=== PATIENT | male | born 1940 | race Caucasian/White ===

== ENCOUNTER 2017-02-16 11:13 | Emergency (ER) | payer OTHER, MEDICARE ==
[~2017-02-16] VITALS: Ht 180.3 cm; Wt 88.5 kg
[2017-02-16] MEDS ORDERED: KETOROLAC 15 MG/ML VIAL. IV ONE (12:45)
[2017-02-16] MEDS ORDERED: HYDROmorphone 2 MG/ML VIAL IV ONE (12:45)
[2017-02-16] MEDS ORDERED: ONDANSETRON PF 4 MG/2 ML VIAL. IV ONE ×2 (12:45)
[2017-02-16] MEDS ORDERED: IV NORMAL SALINE 1000ML BAG 1,000 ML IV ONE (12:45)
[2017-02-16] MEDS ORDERED: TAMSULOSIN 0.4 MG CAP.ER.24H. PO ONE (12:45)
[2017-02-16 12:47] LABS: BASO % 0 % (0-3); EOS % 2 % (0-3); HEMATOCRIT 44.4 % (39.0-53.0); HEMOGLOBIN 15.4 g/dL (13.0-17.5); LYMPH # 2.5 x10^3/uL (1.0-4.8); LYMPH % 33 % (24-48); MEAN CORPUSCULAR HEMOGLOBIN 31 pg (25-35); MEAN CORPUSCULAR HGB CONC 35 g/dL (31-37); MEAN CORPUSCULAR VOLUME 91 fL (79-100); MONO % 9 % (0-9); NEUT % 56 % (31-73); PLATELET COUNT 304 x10^3/uL (140-400); RED BLOOD COUNT 4.89 x10^6/uL (4.30-5.70); RED CELL DISTRIBUTION WIDTH 12.3 % (11.5-14.5); WHITE BLOOD COUNT 7.4 x10^3/uL (4.0-11.0)
[2017-02-16 12:53] LABS: CALCIUM 8.5 mg/dL (8.5-10.1); CREATININE 0.9 mg/dL (0.7-1.3); GFR 82.3; POTASSIUM 4.3 mmol/L (3.5-5.1)
[2017-02-16 13:02] LABS: ALBUMIN 3.9 g/dL (3.4-5.0); TOTAL BILIRUBIN 0.5 mg/dL (0.2-1.0); TOTAL PROTEIN 7.8 g/dL (6.4-8.2)
--- NOTE | 2017-02-16 14:04 | RAD ---
CT study of the abdomen and pelvis without contrast Clinical indications: Right flank pain for 5 days. Technique: Noncontrast helical CT scanning of the abdomen and pelvis was performed. Without contrast, the sensitivity to detect organ pathology and GI tract pathology is decreased. PQRS Compliance Statement: One or more of the following individualized dose reduction techniques were utilized for this examination: 1. Automated exposure control 2. Adjustment of the mA and/or kV according to patient size 3. Use of iterative reconstruction technique Comparison: None available. Findings: Diffuse fatty infiltration of the liver is seen. The spleen is not enlarged. Pancreas is homogeneous in appearance without focal enlargement. There is a gallstone within the neck of the gallbladder measuring 7 mm. No gallbladder wall thickening is seen. No extrahepatic biliary ductal dilatation is seen. No adrenal mass is evident. No urinary tract stone or hydronephrosis or hydroureter is seen. No renal mass is evident on either side on this noncontrast study. No focal aneurysmal dilatation of the abdominal aorta is seen. No enlarged abdominal or pelvic lymphadenopathy is evident. Urinary bladder wall is smooth. No obstructive bowel pattern is evident. The appendix is not identified and may be surgically absent. No free air or free fluid or mesenteric edema is seen. No lung base consolidation is evident. No osteolytic process is evident. IMPRESSION: Cholelithiasis. Fatty infiltration of the liver. No acute abnormality of the abdomen or pelvis is seen.
[2017-02-16] MEDS ORDERED: ORPHENADRINE CITRATE 60 MG/2 ML VIAL. IM ONE (15:00)
[2017-02-16 15:19] LABS: BILIRUBIN,URINE NEGATIVE (NEG); GLUCOSE,URINE 250 mg/dL (NEG); NITRITE,URINE NEGATIVE (NEG); PROTEIN,URINE NEGATIVE (NEG-TRACE); UROBILINOGEN,URINE 0.2 mg/dL (0.2 mg/dL)
[2017-02-16 15:28] LABS: BACTERIA,URINE 0 /HPF (0-FEW); RBC,URINE 0 /HPF (0-2); SQUAMOUS EPITHELIAL CELL,UR FEW /LPF; WBC,URINE OCC /HPF (0-4)
--- NOTE | 2017-02-16 15:58 | RAD ---
Limited abdomen ultrasound study of the right upper quadrant Clinical indications: Right upper quadrant pain. Findings: The pancreas is homogeneous and echogenic without focal enlargement. There are 2 gallbladder plaques within the gallbladder. The largest measures 8 mm. No gallbladder wall thickening is seen. The extra hepatic bile duct measures 4 mL in caliber which is normal. There is diffuse attenuation of sound throughout the liver which may be seen with fatty infiltration of the liver. This decreases the sensitivity of sonography to detect focal hepatic lesions. The liver measures 15.9 cm in length which is normal. The length of the right kidney is 11.8 cm. No hydronephrosis or renal mass or perinephric fluid collection is seen on the right side. IMPRESSION: 2 gallbladder polyps. Fatty infiltration of the liver.
[2017-02-16] MEDS ORDERED: HYDR-971 PO (16:50)
[2017-02-16] MEDS ORDERED: IBUP-1007 PO (16:50)
[2017-02-16] MEDS ORDERED: CYCL10TA2 PO (16:50)
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
[2017-02-16 17:00] VITALS: BP 135/74
== END 2017-02-16 17:20 | disposition home or self-care (01) ==
LOC: ER 11:13
DX: R10.9 Unspecified abdominal pain (principal); Z90.49 Acquired absence of other specified parts of digestive tract
CPT/HCPCS: 36415; 74176; 76705; 80053; 81001; 83690; 85025; 96361; 96374; 96375; 96376; 99285; J1170; J1885; J2360; J2405; J7030

== ENCOUNTER → 2017-09-09 | Outpatient (CLI) | payer OTHER, MEDICARE ==
[2017-09-09 14:11] LABS: ADD MAN DIFF? NO
[2017-09-09 14:13] LABS: BASO % 0 % (0-3); EOS # 0.2 x10^3/uL (0.0-0.7); EOS % 2 % (0-3); HEMATOCRIT 41.7 % (39.0-53.0); HEMOGLOBIN 14.4 g/dL (13.0-17.5); LYMPH # 2.9 x10^3/uL (1.0-4.8); LYMPH % 36 % (24-48); MEAN CORPUSCULAR HEMOGLOBIN 31 pg (25-35); MEAN CORPUSCULAR HGB CONC 35 g/dL (31-37); MEAN CORPUSCULAR VOLUME 90 fL (79-100); MONO # 0.7 x10^3/uL (0.0-1.1); MONO % 8 % (0-9); NEUT # 4.2 x10^3uL (1.8-7.7); NEUT % 53 % (31-73); PLATELET COUNT 325 x10^3/uL (140-400); RED BLOOD COUNT 4.62 x10^6/uL (4.30-5.70); RED CELL DISTRIBUTION WIDTH 12.6 % (11.5-14.5)
[2017-09-09 14:25] LABS: ALBUMIN 3.9 g/dL (3.4-5.0); ALBUMIN/GLOBULIN RATIO 1.1 (1.0-1.7); ALK PHOS 60 U/L (46-116); ALT (SGPT) 39 U/L (16-63); ANION GAP 12 (6-14); AST (SGOT) 31 U/L (15-37); BLOOD UREA NITROGEN 13 mg/dL (8-26); BUN/CREATININE RATIO 13 (6-20); CARBON DIOXIDE 23 mmol/L (21-32); CHLORIDE 102 mmol/L (98-107); GFR 72.6; GLUCOSE 131 mg/dL (70-99); SODIUM 137 mmol/L (136-145); TOTAL BILIRUBIN 0.7 mg/dL (0.2-1.0); TOTAL PROTEIN 7.3 g/dL (6.4-8.2)
[2017-09-09 23:15] LABS: MRSA BY PCR Negative (Negative)
== END | disposition home or self-care (01) ==
LOC: SURGPAT 12:58
DX: Z01.818 Encounter for other preprocedural examination (principal); M47.896 Other spondylosis, lumbar region; M48.061 Spinal stenosis, lumbar region without neurogenic claudication; M54.16 Radiculopathy, lumbar region
CPT/HCPCS: 36415; 80053; 85025; 87641

== ENCOUNTER 2017-09-25 06:54 | Observation (INO) | payer OTHER, MEDICARE ==
[2017-09-25] MEDS ORDERED: MORPHINE SULFATE 4 MG/ML DISP.SYRIN. IV (07:00)
[2017-09-25] MEDS ORDERED: PROCHLORPERAZINE 10 MG/2 ML VIAL. IV (07:00)
[2017-09-25] MEDS ORDERED: ONDANSETRON PF 4 MG/2 ML VIAL. IV ×2 (07:00→11:30)
[2017-09-25] MEDS ORDERED: fentaNYL PF VIAL 100 MCG/2 ML VIAL IV ×4 (07:00→11:30)
[2017-09-25] MEDS ORDERED: LIDOCAINE 1% PF 2 ML VIAL. ID (07:00)
[2017-09-25] MEDS ORDERED: LIDOCAINE 2% PF Vial for OR 5 ML VIAL. (07:33)
[2017-09-25] MEDS ORDERED: REMIFENTANIL 2 MG VIAL. IV (07:33)
[2017-09-25] MEDS ORDERED: SUCCINYLCHOLINE 200 MG/10 ML VIAL. (07:33)
[2017-09-25] MEDS ORDERED: ROCURONIUM 50 MG/5 ML VIAL. (07:33)
[2017-09-25] MEDS ORDERED: fentaNYL PF VIAL 100 MCG/2 ML VIAL (07:33)
[2017-09-25] MEDS ORDERED: PROPOFOL 50 ML IV ×2 (07:33→10:19)
[2017-09-25] MEDS ORDERED: PROPOFOL 20 ML IV (07:33)
[2017-09-25 07:39] LABS: POC GLUCOSE 100 mg/dL (70-99)
[2017-09-25] MEDS: IV RINGERS,LACTATED 1000ML 1,000 ML IV (07:41)
[2017-09-25] MEDS ORDERED: VANCOMYCIN 1GM IVPB FOR OMNI 250 ML (07:46)
[2017-09-25] MEDS ORDERED: DEXAMETHASONE SOD PHOS 20 MG/5 ML VIAL. (08:59)
[2017-09-25] MEDS ORDERED: DESFLURANE > 120 MINUTES IH (08:59)
[2017-09-25] MEDS ORDERED: PHENYLEPHRINE in 0.9% NACL PF 1 MG/10 ML SYRINGE. IV (09:01)
[2017-09-25] MEDS: VANCOMYCIN 1GM IVPB FOR OMNI 250 ML IV (09:11)
[2017-09-25] MEDS: BACITRACIN 50,000 UNIT in IV NORMAL SALINE 1000ML BAG 1,000 ML IRR (09:30)
[2017-09-25] MEDS: GELATIN SPONGE SIZE 100. (09:30)
[2017-09-25] MEDS: KETOROLAC 60 MG/2 ML INJ FOR OR. (09:30)
[2017-09-25] MEDS: THROMBIN TOPICAL 20,000 UNIT SPRAY.SYRN KIT TP (09:30)
[2017-09-25] MEDS: BUPIVAC MPF-EPI 0.5%-1:200000 30 ML VIAL. INJ (09:30)
[2017-09-25] MEDS ORDERED: ePHEDrine PF IN SALINE 50 MG/5 ML DISP.SYRIN IV (09:36)
[2017-09-25] MEDS ORDERED: ONDANSETRON PF 4 MG/2 ML VIAL. (09:37)
[2017-09-25] MEDS ORDERED: CALCIUM CARBONATE 500 MG TAB.CHEW PO (11:30)
[2017-09-25] MEDS ORDERED: DEXTROSE 50% 25 GM / 50ML DISP.SYRIN. IV (11:30)
[2017-09-25] MEDS ORDERED: 0.9 % SODIUM CHLORIDE 10 ML DISP.SYRIN. IV (11:30)
[2017-09-25] MEDS ORDERED: diphenhydrAMINE 50 MG/ML VIAL IV (11:30)
[2017-09-25] MEDS ORDERED: diphenhydrAMINE HCL 25 MG CAPSULE PO (11:30)
[2017-09-25] MEDS ORDERED: HYDROcodone/APAP 5/325MG 1 TAB TABLET PO ×2 (11:30)
[2017-09-25] MEDS ORDERED: MAGNESIUM HYDROXIDE 2,400 MG/30 ML ORAL.SUSP. PO (11:30)
[2017-09-25] MEDS ORDERED: MAG HYDROX/ALUMINUM HYD/SIMETH 30 ML ORAL.SUSP PO (11:30)
[2017-09-25] MEDS ORDERED: ACETAMINOPHEN 325 MG TABLET. PO (11:30)
[2017-09-25 11:33] LABS: POC GLUCOSE 140 mg/dL (70-99)
[2017-09-25] MEDS: POTASSIUM CL 20MEQ-0.45% NACL 1,000 ML IV (12:00)
[2017-09-25] MEDS ORDERED: IBUPROFEN 600 MG TABLET. PO (12:00)
[2017-09-25] MEDS: METHOCARBAMOL 750 MG TABLET PO ×2 (14:00→20:49)
[2017-09-25 16:41] LABS: POC GLUCOSE 163 mg/dL (70-99)
[2017-09-25] MEDS: DOCUSATE SODIUM 100 MG CAPSULE. PO (20:49)
[2017-09-26] MEDS: POTASSIUM CL 20MEQ-0.45% NACL 1,000 ML IV (01:20)
[2017-09-26 03:51] LABS: POC GLUCOSE 154 mg/dL (70-99)
[2017-09-26 06:39] LABS: POC GLUCOSE 132 mg/dL (70-99)
[2017-09-26] MEDS: METHOCARBAMOL 750 MG TABLET PO (07:53)
[2017-09-26] MEDS: DOCUSATE SODIUM 100 MG CAPSULE. PO (07:53)
== END 2017-09-26 11:50 | disposition home or self-care (01) ==
LOC: SURG 06:54 → 4 SOUTHEST 11:58
PROVIDERS: Neurological Surgery
DX: M48.061 Spinal stenosis, lumbar region without neurogenic claudication (principal); M47.899 Other spondylosis, site unspecified; M43.10 Spondylolisthesis, site unspecified; E11.9 Type 2 diabetes mellitus without complications; M51.16 Intervertebral disc disorders with radiculopathy, lumbar region; Z83.3 Family history of diabetes mellitus; M19.90 Unspecified osteoarthritis, unspecified site; Z85.9 Personal history of malignant neoplasm, unspecified; Z86.19 Personal history of other infectious and parasitic diseases
CPT/HCPCS: 63047; 76000; 82962; 88304; 88311; 97162-GP; 97530-GP; A7015; G0378; G0379; G8978-CI-GP; G8979-CI-GP; G8980-CI-GP; J0330; J1100; J1885; J2370; J2405; J2704; J3010; J3370; J3490; J7030; J7120

== ENCOUNTER 2020-08-06 13:15 | Emergency (ER) | payer MEDICARE ==
[~2020-08-06] VITALS: Ht 182.9 cm; Wt 80.0 kg
[~2020-08-06 13:15] MED LIST: CYCL10TA2 PO; DOCU-109 PO; ERTA1VIA16 IJ; HYDR-2761 PO; HYDR-3164 PO; IBUP-1007 PO; LINE600T12 PO; METF10007 PO; METH-38 PO
[2020-08-06] MEDS ORDERED: FAMOTIDINE 20 MG/2 ML VIAL IVP ONE (14:00)
[2020-08-06] MEDS ORDERED: IV NORMAL SALINE 1000ML BAG 1,000 ML IV ONE (14:00)
[2020-08-06] MEDS ORDERED: ONDANSETRON PF 4 MG/2 ML VIAL. IVP ONE (14:00)
[2020-08-06] MEDS ORDERED: fentaNYL PF VIAL 100 MCG/2 ML VIAL IV ONE (14:00)
[2020-08-06] MEDS ORDERED: FAMOTIDINE 20 MG/2 ML VIAL ONE (14:11)
[2020-08-06] MEDS ORDERED: ONDANSETRON PF 4 MG/2 ML VIAL. ONE (14:11)
[2020-08-06 14:13] LABS: BASO % 0 % (0-3); EOS % 0 % (0-3); HEMATOCRIT 40.6 % (39.0-53.0); HEMOGLOBIN 14.1 g/dL (13.0-17.5); LYMPH # 0.7 x10^3/uL (1.0-4.8); LYMPH % 15 % (24-48); MEAN CORPUSCULAR HEMOGLOBIN 31 pg (25-35); MEAN CORPUSCULAR HGB CONC 35 g/dL (31-37); MEAN CORPUSCULAR VOLUME 88 fL (79-100); MONO # 0.8 x10^3/uL (0.0-1.1); MONO % 16 % (0-9); NEUT # 3.3 x10^3/uL (1.8-7.7); NEUT % 68 % (31-73); PLATELET COUNT 331 x10^3/uL (140-400); RED BLOOD COUNT 4.61 x10^6/uL (4.30-5.70); RED CELL DISTRIBUTION WIDTH 13.9 % (11.5-14.5); WHITE BLOOD COUNT 4.9 x10^3/uL (4.0-11.0)
[2020-08-06 14:46] LABS: CALCIUM 8.2 mg/dL (8.5-10.1); GFR 72.1; POTASSIUM 3.5 mmol/L (3.5-5.1)
[2020-08-06 14:52] LABS: ALBUMIN 3.2 g/dL (3.4-5.0); ALBUMIN/GLOBULIN RATIO 0.7 (1.0-1.7); MAGNESIUM 1.9 mg/dL (1.8-2.4); TOTAL BILIRUBIN 0.7 mg/dL (0.2-1.0); TOTAL PROTEIN 7.5 g/dL (6.4-8.2)
[2020-08-06] MEDS ORDERED: IOHEXOL 300 MG/ML 100ML VIAL. IV ONE (15:00)
[2020-08-06] MEDS ORDERED: CONTRAST GIVEN. MC PRN (15:00)
[2020-08-06] MEDS ORDERED: IOHEXOL 240 MG/ML 50ML VIAL. PO ONE (15:00)
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
--- NOTE | 2020-08-06 15:45 | RAD ---
CT SCAN OF THE ABDOMEN AND PELVIS WITH IV CONTRAST. History: Reason: abdominal pain, distention / Spl. Instructions: omnmi 300 75ml omni 240 50ml / His tory: Comparison:February 16, 2017. Procedure: Contiguous axial images of the abdomen and pelvis were performed after the administration of 75 cc o f Omni 300 IV contrast. Oral contrast: Yes. Findings: There is moderate patchy and groundglass peripheral opacities in the lung bases. Liver: Unremarkable Spleen: Unremarkable Pancreas: The pancreatic duct is moderately dilated. The pancreas is mildly atrophic. There is a tiny stone in the gallbladder without wall thickening or stranding inflammation. There is a 1 cm stone in ferior to the head of the pancreas. This does not appear to be in the common bile duct which is not d ilated. This was not present previously. Adrenal Glands: Unremarkable Kidneys: Unremarkable There is no mass or lymphadenopathy. There is no free air. There is no free fluid. The urinary bladder appears normal. The appendix is not well seen. There are surgical clips in the abdominal wall on the right which coul d be prior hernia repair. Was seen previously. Impression: 1. Moderate bilateral pulmonary infiltrates suggesting atypical pneumonia. 2. Dilated pancreatic duct and possible stone in the distal pancreatic duct. End impression PQRS Compliance Statement: One or more of the following individualized dose reduction techniques were utilized for this examinat ion: 1. Automated exposure control 2. Adjustment of the mA and/or kV according to patient size 3. Use of iterative reconstruction technique Electronically signed by: Oz Randhawa III, MD (08/06/2020 3:42 PM) [facility]
[2020-08-06 16:59] LABS: BILIRUBIN,URINE NEGATIVE (NEG); CLARITY,URINE CLEAR; COLOR,URINE YELLOW; NITRITE,URINE NEGATIVE (NEG); PROTEIN,URINE 30 mg/dL (NEG-TRACE); UROBILINOGEN,URINE 0.2 mg/dL (0.2 mg/dL)
--- NOTE | 2020-08-06 17:04 | RAD ---
XR CHEST 1V 08/06/2020 4:52 PM INDICATION: Infiltrates. Covid patient under investigation COMPARISON: CT abdomen/pelvis 08/06/2020 TECHNIQUE: Portable frontal view of the chest is provided. FINDINGS: The cardiomediastinal silhouette is within normal limits. Bibasilar subsegmental atelectasis or infil trates similar to the prior CT. There are no significant pleural effusions. There is no pulmonary vascular congestion. No pneumothora x. No suspicious osseous abnormality. IMPRESSION: Patchy bibasilar infiltrate changes may represent subsegmental atelectasis versus infiltrates. Electronically signed by: Phoebe Lowery MD (08/06/2020 5:02 PM) [facility]
[2020-08-06 17:06] LABS: BACTERIA,URINE 0 /HPF (0-FEW); RBC,URINE 0 /HPF (0-2); WBC,URINE 0 /HPF (0-4)
[2020-08-06] MEDS ORDERED: AZIT250T PO (17:24)
[2020-08-06] MEDS ORDERED: ONDA4TAB12 PO (17:24)
[2020-08-06 17:25] VITALS: BP 123/59
--- NOTE | 2020-08-06 19:40 | EKG ---
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
--- NOTE | 2020-08-08 09:41 | NUR ---
IP: Attempted to contact pt. No answer. Called his 's cell number. She verified his and name. Informed her of positive COVID test and the need to quarantine for 14 days. She verbalized understanding.
== END 2020-08-06 17:30 | disposition home or self-care (01) ==
LOC: ER 13:15
DX: U07.1 COVID-19 (principal); R11.2 Nausea with vomiting, unspecified; J18.9 Pneumonia, unspecified organism; R10.84 Generalized abdominal pain; E11.9 Type 2 diabetes mellitus without complications; Z98.890 Other specified postprocedural states; Z90.89 Acquired absence of other organs; Z88.0 Allergy status to penicillin; Z88.1 Allergy status to other antibiotic agents
CPT/HCPCS: 36415; 71045; 74177; 80053; 81001; 82553; 83605; 83690; 83735; 84484; 85025; 93005; 96361; 96374; 96375; 99285; C9803; J2405; J3010; J3490; J7030; U0003; U0005